=== PATIENT | female | born 1955 | race Caucasian/White ===

== ENCOUNTER 2024-07-28 18:34 | Inpatient (IN) | payer MEDICAID ==
[~2024-07-28] VITALS: Ht 149.9 cm; Wt 71.4 kg
[2024-07-28 18:40] VITALS: BP 169/61; PULSE 104; RESP 20; TEMP 98.7; O2SAT 99
[2024-07-28] MEDS: ONDANSETRON 4 MG/2 ML VIAL IVP ONE (19:54)
[2024-07-28] MEDS: MORPHINE SULFATE 4 MG/ML SYR IVP ONE (19:54)
[2024-07-28 20:16] LABS: BASOPHILS % (AUTO) 0.1 % (0.0-2.0); EOSINOPHILS % (AUTO) 0.3 % (0.0-4.0); HEMOGLOBIN 12.9 g/dL (12.0-16.0); LYMPHOCYTES # (AUTO) 1.1 K/uL (2.5-16.5); MEAN CORPUSCULAR HEMOGLOBIN 28 pg (27-31); MEAN CORPUSCULAR HGB CONC 34 g/dL (33-37); MEAN CORPUSCULAR VOLUME 83.7 fL (80-94); MONOCYTES # (AUTO) 0.7 K/uL (0.8-1.0); MONOCYTES % (AUTO) 5.1 % (1.7-9.3); NEUTROPHILS % (AUTO) 86.5 % (42.2-75.2); PLATELET COUNT (AUTO) 346 K/uL (140-450); RED BLOOD CELL COUNT(AUTO) 4.53 MIL/uL (4.20-5.40); WHITE BLOOD COUNT (AUTO) 13.9 K/uL (4.8-10.8)
[2024-07-28 20:42] LABS: ANION GAP 13.2 (8-16); CALCIUM 9.6 mg/dL (8.5-10.1); CREATININE 0.8 mg/dL (0.6-1.3); POTASSIUM 4.2 mmol/L (3.5-5.1)
[2024-07-28 20:48] LABS: ALBUMIN 3.6 g/dL (3.4-5.0); BILIRUBIN,DIRECT 0.1 mg/dL (0.0-0.3); TOTAL BILIRUBIN 0.5 mg/dL (0.0-1.0); TOTAL PROTEIN, SERUM 8.1 g/dL (6.4-8.2)
[2024-07-28] MEDS: KETOROLAC 30 MG/ML VIAL IVP ONE (21:02)
[2024-07-28] MEDS: NACL 0.9% 1,000 ML IV ONE (21:02)
[2024-07-28 21:24] LABS: APPEARANCE,URINE CLEAR (CLEAR); BILIRUBIN,URINE NEGATIVE (NEGATIVE); BLOOD, URINE TRACE-L (NEGATIVE); COLOR,URINE YELLOW (YELLOW); LEUKOCYTE ESTERASE ,URINE NEGATIVE (NEGATIVE); NITRITE, URINE NEGATIVE (NEGATIVE); PROTEIN,URINE NEGATIVE (NEGATIVE); UGLUCOSE NEGATIVE (NEGATIVE); UROBILINOGEN,URINE 0.2 EU/dL (0.2 - 1)
[2024-07-28] MEDS ORDERED: PIPERACILLIN/TAZOBACTAM 3.375 GM VIAL IV ONE (21:26)
[2024-07-28 21:36] LABS: BACTERIA,URINE 2+ /HPF (None Seen); MUCUS,URINE 2+ /LPF (None Seen); SQUAMOUS EPITHELIAL CELL,UR 4-10 (MOD) /LPF (0-3 (FEW))
[2024-07-28] MEDS: PIPERACILLIN/TAZOBACTAM 3.375 GM in DEXTROSE 5% 50 ML IV ONE (21:37)
[2024-07-28] MEDS ORDERED: ZOLPIDEM 5 MG TAB PO PRN ×2 (22:20→22:30)
[2024-07-28] MEDS ORDERED: POTASSIUM CHLORIDE 10 MEQ TABER PO PRN (22:20)
[2024-07-28] MEDS ORDERED: guaiFENesin DM 200/20 MG-10 ML 10 ML UDC PO PRN ×2 (22:20→22:30)
[2024-07-28] MEDS ORDERED: HYDROcodone/APAP 7.5/325 MG 1 TAB PO PRN (22:20)
[2024-07-28] MEDS ORDERED: DOCUSATE SODIUM 100 MG GELCAP PO PRN ×2 (22:20→22:30)
[2024-07-28] MEDS ORDERED: ONDANSETRON 4 MG/2 ML VIAL IM/IVP PRN ×2 (22:20→22:30)
[2024-07-28] MEDS ORDERED: ACETAMINOPHEN 325 MG TAB PO PRN (22:20)
[2024-07-28] MEDS ORDERED: MAG SULF 2000 MG/WATER PREMIX 50 ML IV PRN (22:25)
[2024-07-28] MEDS ORDERED: DEXTROSE 50% 50 ML SYR IVP PRN ×2 (22:25)
[2024-07-28] MEDS ORDERED: DEXT 5% /NACL 0.9% 1,000 ML IV SCH (22:25)
[2024-07-28] MEDS ORDERED: hydrALAZINE 20 MG/ML VIAL IVP PRN (22:25)
[2024-07-28] MEDS: DEXT 5% /NACL 0.9% 1,000 ML IV SCH (22:25)
[2024-07-28] MEDS ORDERED: INSULIN LISPRO SLIDING SCALE 100 UNITS/ML VIAL SUBQ PRN (22:25)
[2024-07-28] MEDS ORDERED: AMLO2.5T PO (23:09)
[2024-07-28] MEDS ORDERED: LOSA-272 PO (23:09)
[2024-07-28] MEDS ORDERED: METF1TAB1 PO (23:09)
[2024-07-28] MEDS ORDERED: METF-1139 PO (23:09)
[2024-07-28 23:11] LABS: INR 1.04 (0.8-1.2); PARTIAL THROMBOPLASTIN TIME 26.9 secs (22-35.6); PROTHROMBIN TIME 10.9 secs (10.8-13.4)
[2024-07-28 23:28] LABS: LACTIC ACID 2.6 mmol/L (0.4-2.0)
[2024-07-29] VITALS (9 sets, daily range): BP systolic 94–139; BP diastolic 42–62; PULSE 73–100; RESP 17–79; TEMP 97.6–98.3; O2SAT 94–98
[2024-07-29] MEDS: ACETAMINOPHEN 325 MG TAB PO PRN (03:46)
[2024-07-29] MEDS ORDERED: PIPERACILLIN/TAZOBACTAM 2.25 GM in DEXTROSE 5% 50 ML IV SCH (05:00)
[2024-07-29] MEDS ORDERED: PIPERACILLIN/TAZOBACTAM 3.375 GM VIAL IV ONE (05:04)
[2024-07-29] MEDS: PIPERACILLIN/TAZOBACTAM 3.375 GM in DEXTROSE 5% 50 ML IV SCH (05:10)
[2024-07-29 06:42] LABS: BASOPHILS % (AUTO) 0.1 % (0.0-2.0); EOSINOPHILS % (AUTO) 0.2 % (0.0-4.0); HEMATOCRIT 34.5 % (36-48); HEMOGLOBIN 11.5 g/dL (12.0-16.0); LYMPHOCYTES # (AUTO) 1.1 K/uL (2.5-16.5); LYMPHOCYTES % (AUTO) 8.6 % (20.5-51.1); MEAN CORPUSCULAR HEMOGLOBIN 28 pg (27-31); MEAN CORPUSCULAR HGB CONC 33 g/dL (33-37); MEAN CORPUSCULAR VOLUME 83.8 fL (80-94); MONOCYTES # (AUTO) 0.5 K/uL (0.8-1.0); NEUTROPHILS # (AUTO) 11.5 K/uL (1.8-7.7); NEUTROPHILS % (AUTO) 87.1 % (42.2-75.2); PLATELET COUNT (AUTO) 290 K/uL (140-450); RED BLOOD CELL COUNT(AUTO) 4.11 MIL/uL (4.20-5.40); RED CELL DISTRIBUTION WIDTH 13.9 % (11.6-13.7); WHITE BLOOD COUNT (AUTO) 13.2 K/uL (4.8-10.8)
[2024-07-29 06:59] LABS: ANION GAP 10.8 (8-16); CALCIUM 8.4 mg/dL (8.5-10.1); CARBON DIOXIDE 24.8 mmol/L (21-32); CREATININE 0.7 mg/dL (0.6-1.3); POTASSIUM 3.6 mmol/L (3.5-5.1)
[2024-07-29 07:02] LABS: ALBUMIN 2.8 g/dL (3.4-5.0); TOTAL BILIRUBIN 0.9 mg/dL (0.0-1.0); TOTAL PROTEIN, SERUM 6.7 g/dL (6.4-8.2)
[2024-07-29] MEDS ORDERED: BLOOD GLUCOSE MONITORING 1 DEV DEV FS SCH (07:30)
[2024-07-29 07:39] LABS: MAGNESIUM 1.7 mg/dL (1.8-2.4)
[2024-07-29] MEDS: BLOOD GLUCOSE MONITORING 1 DEV DEV FS SCH (08:01)
[2024-07-29] MEDS: INSULIN LISPRO SLIDING SCALE 100 UNITS/ML VIAL SUBQ PRN (08:02)
[2024-07-29] MEDS: amLODIPine 5 MG TAB PO SCH (09:00)
[2024-07-29] MEDS ORDERED: PANTOPRAZOLE 40 MG TABEC PO SCH (09:00)
[2024-07-29] MEDS: LOSARTAN 50 MG TAB PO SCH (09:00)
[2024-07-29] MEDS: PANTOPRAZOLE 40 MG TABEC PO SCH (09:31)
[2024-07-29] MEDS: HYDROcodone/APAP 7.5/325 MG 1 TAB PO PRN (09:32)
[2024-07-29] MEDS: NACL 0.9% 500 ML IV SCH (11:21)
[2024-07-29] MEDS ORDERED: SEVOFLURANE 250 ML BTL INH ONE (13:00)
[2024-07-29] MEDS: fentaNYL citrate 0.05 MG/ML VIAL ONE (13:03)
[2024-07-29] MEDS: LIDOCAINE/EPI 1% 1:100000 20 ML VIAL INJ ONE (13:12)
[2024-07-29] MEDS: ceFAZolin 2,000 MG VIAL ONE (13:40)
[2024-07-29] MEDS: BUPIVACAINE-MPF 0.25% 30 ML VIAL INJ ONE (13:50)
[2024-07-29] MEDS: PROPOFOL 200 MG/20 ML VIAL IV ONE (14:04)
[2024-07-29] MEDS: ONDANSETRON 4 MG/2 ML VIAL ONE (14:05)
[2024-07-29] MEDS: ROCURONIUM 50 MG/5 ML VIAL IV ONE (14:05)
[2024-07-29] MEDS: KETOROLAC 30 MG/ML VIAL ONE (14:05)
[2024-07-29] MEDS: METOCLOPRAMIDE 10 MG/2 ML INJ VIAL ONE (14:05)
[2024-07-29] MEDS: LIDOCAINE MPF 2% 100 MG/5 ML VIAL INJ ONE (14:05)
[2024-07-29] MEDS: SODIUM 10 ML ONE (14:06)
[2024-07-29] MEDS: GLYCOPYRROLATE 0.2 MG/ML VIAL ONE (14:06)
[2024-07-29] MEDS: PHENYLEPHRINE 10 MG/ML VIAL ONE (14:06)
[2024-07-29] MEDS: SUGAMMADEX SODIUM 200 MG/2 ML VIAL IV ONE (14:17)
[2024-07-29] MEDS ORDERED: ONDANSETRON 4 MG/2 ML VIAL IVP PRN (14:45)
[2024-07-29] MEDS ORDERED: HYDROmorphone 1 MG/ML AMP IVP PRN (14:45)
[2024-07-29] MEDS ORDERED: MEPERIDINE 25 MG/ML SYR IVP PRN (14:45)
[2024-07-29] MEDS: LACTATED RINGERS 1,000 ML IV SCH (14:45)
[2024-07-29] MEDS ORDERED: diphenhydrAMINE 50 MG/ML VIAL IVP PRN (14:45)
[2024-07-29] MEDS: NACL 0.9% 1,000 ML IV SCH (16:38)
[2024-07-30] VITALS: BP 135/56; PULSE 92; RESP 18; TEMP 98.8; O2SAT 98
[2024-07-30 04:00] VITALS: PULSE 91
[2024-07-30 06:00] VITALS: BP 134/54; PULSE 73; RESP 17; TEMP 97.8; O2SAT 97
[2024-07-30 06:48] LABS: BASOPHILS % (AUTO) 0.2 % (0.0-2.0); EOSINOPHILS # (AUTO) 0.1 K/uL (0-0.4); EOSINOPHILS % (AUTO) 0.9 % (0.0-4.0); HEMOGLOBIN 10.8 g/dL (12.0-16.0); LYMPHOCYTES # (AUTO) 1.7 K/uL (2.5-16.5); LYMPHOCYTES % (AUTO) 16.8 % (20.5-51.1); MEAN CORPUSCULAR HEMOGLOBIN 28 pg (27-31); MEAN CORPUSCULAR HGB CONC 33 g/dL (33-37); MEAN CORPUSCULAR VOLUME 85.6 fL (80-94); MONOCYTES # (AUTO) 0.5 K/uL (0.8-1.0); MONOCYTES % (AUTO) 4.8 % (1.7-9.3); NEUTROPHILS # (AUTO) 7.7 K/uL (1.8-7.7); NEUTROPHILS % (AUTO) 77.3 % (42.2-75.2); PLATELET COUNT (AUTO) 267 K/uL (140-450); RED BLOOD CELL COUNT(AUTO) 3.86 MIL/uL (4.20-5.40); RED CELL DISTRIBUTION WIDTH 13.8 % (11.6-13.7); WHITE BLOOD COUNT (AUTO) 9.9 K/uL (4.8-10.8)
[2024-07-30 07:15] LABS: ALBUMIN 2.3 g/dL (3.4-5.0); ANION GAP 10.1 (8-16); CALCIUM 7.2 mg/dL (8.5-10.1); CARBON DIOXIDE 24.9 mmol/L (21-32); CREATININE 0.7 mg/dL (0.6-1.3); TOTAL BILIRUBIN 0.6 mg/dL (0.0-1.0); TOTAL PROTEIN, SERUM 6.1 g/dL (6.4-8.2)
[2024-07-30 07:19] LABS: MAGNESIUM 1.4 mg/dL (1.8-2.4); PHOSPHORUS 2.4 mg/dL (2.5-4.9)
[2024-07-30 08:00] VITALS: BP 113/96; PULSE 70; PULSE 87; RESP 18; TEMP 97; O2SAT 97
[2024-07-30] MEDS: POTASSIUM CHLORIDE 10 MEQ TABER PO PRN (08:48)
[2024-07-30] MEDS: MAG SULF 2000 MG/WATER PREMIX 50 ML IV PRN (08:49)
[2024-07-30] MEDS: POTASSIUM CHLORIDE 40 MEQ, LIDOCAINE 1% 25 MG in NACL 0.9% 250 ML IV ONE (09:00)
[2024-07-30] MEDS ORDERED: LOSA-272 PO (11:25)
[2024-07-30] MEDS ORDERED: MOT200 PO (12:02)
[2024-07-30 13:04] VITALS: BP 113/96; PULSE 70; RESP 18; TEMP 97
[2024-07-30 13:26] VITALS: BP 113/96; PULSE 70; RESP 18; TEMP 97
== END 2024-07-30 14:10 | disposition home or self-care (01) | DRG 710 ==
LOC: MED 18:34 → MTU 22:18 → MED 22:21 → MTU 07-29 06:52
PROVIDERS: ADMIT Student in an Organized Health Care Education/Training Program; ATTEND Student in an Organized Health Care Education/Training Program
PROC: 0DTJ4ZZ Resection of Appendix, Percutaneous Endoscopic Approach (ICD-10-PCS; principal; 2024-07-29 11:20)
DX: A41.9 Sepsis, unspecified organism (principal); E44.0 Moderate protein-calorie malnutrition; E88.09 Other disorders of plasma-protein metabolism, not elsewhere classified; R71.0 Precipitous drop in hematocrit; E11.9 Type 2 diabetes mellitus without complications; K35.80 Unspecified acute appendicitis; E83.42 Hypomagnesemia; I10 Essential (primary) hypertension; E87.6 Hypokalemia; Z68.31 Body mass index [BMI] 31.0-31.9, adult; Z79.899 Other long term (current) drug therapy; Z79.84 Long term (current) use of oral hypoglycemic drugs
CPT/HCPCS: 36415; 71045; 80048; 80053; 80076; 81001; 82948; 83605; 83690; 83735; 84100; 85025; 85610; 85730; 86886; 86900; 86901; 87040; 87081; 87086; 88304; 93005; 96361; 96365; 96375; 97163-GP; 99291; J1815; J1885; J2001; J2270; J2405; J2543; J2704; J2765; J3010; J3475; J3480; J3490; J7030; J7060; Q0092